=== PATIENT | female | born 1980 | race Caucasian/White ===

== ENCOUNTER → 2020-04-17 | Outpatient (CLI) | payer OTHER ==
[~2020-04-17] MED LIST: Copaxone20 MG INJ; HYDACE5 PO; IBUP200 PO; MULVITA; Vibramycin100 MG PO
[2020-04-19 17:17] LABS: CORONAVIRUS (COVID19) CSH-NRL Negative (Negative)
== END | disposition home or self-care (01) ==
LOC: LAB 15:10 → LAB SHORT 15:10
PROVIDERS: Chiropractor
DX: Z20.828 Contact with and (suspected) exposure to other viral communicable diseases (principal)
CPT/HCPCS: U0003

== ENCOUNTER 2024-07-31 00:32 | Day surgery (SDC) | payer OTHER ==
[2024-07-31] MEDS ORDERED: OCRELIZUMAB 300 MG in NS 250 ML IV SCH (06:00)
[2024-07-31] MEDS ORDERED: DiphenhydrAMINE HCL 25 MG Cap PO SCH (06:50)
[2024-07-31] MEDS ORDERED: Famotidine 10 MG/ML 2ML Vial IV SCH (06:50)
[2024-07-31] MEDS ORDERED: Acetaminophen 325 MG TABLET PO SCH (06:50)
[2024-07-31] MEDS ORDERED: DiphenhydrAMINE HCl 50 MG/ML 1ML Vial IV SCH (06:50)
[2024-07-31] MEDS ORDERED: MethylPREDNISolone Sod Succ 125 MG Vial IV SCH ×2 (06:50)
[2024-07-31 07:46] VITALS: BP 117/75
[2024-07-31 09:23] VITALS: BP 112/74
[2024-07-31 09:53] VITALS: BP 121/68
--- NOTE | 2024-07-31 12:14 | NUR ---
30 MIN OBSERVATION POST TRANSUFSION COMPLETED. ORDER STATES OBSERVE FOR 1 HOUR. PT WOULD LIKE TO BE DISCHARGED. PT HAS HAD NO REACTION, SHE WAS PREMEDICATED, AND PT VERBALIZES UNDERSTANDING OF POSSIBLE REACTION SIGNS AND SYMPTOMS, WHAT TO DO AND WHERE TO GO IF A REACTION OCCURS. PT DISCHARGED AT 1210 WITH ALL BELONGINGS.
== END 2024-07-31 12:10 | disposition home or self-care (01) ==
LOC: ATC 00:32
DX: G35 Multiple sclerosis (principal); Z91.048 Other nonmedicinal substance allergy status
CPT/HCPCS: 96375; 96413; 96415; A9270; J2350; J2919; J7050

== ENCOUNTER 2024-08-14 00:35 | Day surgery (SDC) | payer OTHER ==
[2024-08-14] VITALS (7 sets, daily range): BP systolic 98–109; BP diastolic 52–65
[2024-08-14] MEDS ORDERED: OCRELIZUMAB 300 MG in NS 250 ML IV SCH (06:00)
[2024-08-14] MEDS ORDERED: MethylPREDNISolone Sod Succ 125 MG Vial IV SCH (07:15)
[2024-08-14] MEDS ORDERED: Acetaminophen 325 MG TABLET PO SCH (07:15)
[2024-08-14] MEDS ORDERED: DiphenhydrAMINE HCL 25 MG Cap PO SCH (07:15)
[2024-08-14] MEDS ORDERED: OCREVUS ZUNOVO23 ML IV (08:04)
== END 2024-08-14 12:11 | disposition home or self-care (01) ==
LOC: ATC 00:35
DX: G35 Multiple sclerosis (principal); Z88.8 Allergy status to other drugs, medicaments and biological substances
CPT/HCPCS: 96375; 96413; 96415; A9270; J2350; J2919; J7050

== ENCOUNTER 2025-04-17 06:32 | Day surgery (SDC) | payer OTHER ==
[~2025-04-17 06:32] MED LIST changes: +DiphenhydrAMINE HCl 50 MG/ML 1ML Vial IV SCH; +NS IV SCH; +OCREVUS ZUNOVO23 ML IV; +RITUXIMAB ABBS IV SCH
[2025-04-17 13:50] VITALS: BP 119/66
[2025-04-17] MEDS ORDERED: TRUXIMA10 MG/1 ML IV (13:53)
[2025-04-17 15:19] VITALS: BP 117/52
[2025-04-17 15:54] VITALS: BP 114/63
[2025-04-17 16:31] VITALS: BP 118/67
[2025-04-17 16:55] VITALS: BP 121/61
[2025-04-17 17:27] VITALS: BP 123/54
== END 2025-04-17 18:00 | disposition home or self-care (01) ==
LOC: ATC 06:32
DX: G35.A Relapsing-remitting multiple sclerosis (principal); F41.0 Panic disorder [episodic paroxysmal anxiety]; Z88.2 Allergy status to sulfonamides
CPT/HCPCS: 96413; 96415; A9270; J1200; J2919; J7050; Q5115